=== PATIENT | female | born 1965 | race Caucasian/White ===

== ENCOUNTER 2018-03-04 05:53 | Inpatient (IN) ==
[2018-03-04] MEDS ORDERED: NS 1,000 ML IV ONE (06:06)
[2018-03-04] MEDS ORDERED: METOCLOPRAMIDE 10mg/2ml INJECTION IVP ONE (06:06)
[2018-03-04] MEDS ORDERED: SALINE FLUSH 10ml SYRINGE IVF PRN (06:06)
[2018-03-04] MEDS ORDERED: IOHEXOL 300mg/ml 100ml INJECTION ONE (06:35)
[2018-03-04] MEDS ORDERED: SALINE FLUSH 10ml SYRINGE ONE (06:36)
--- NOTE | 2018-03-04 06:42 | Emergency Department Report ---
Abdominal Pain HPI - General Chief Complaint: Abdominal Pain Stated Complaint: dizzy,nausea,abd pain Time Seen by Provider: 03/04/18 06:00 Source: patient, EMS, RN notes reviewed, old records reviewed Mode of arrival: EMS Limitations: no limitations - History of Present Illness HPI narrative: 52yo woman presented to the ER by EMS for evaluation of abdominal pain. Pt was in the [employer] pool swimming laps, when she became dizzy, nauseated, and had abd pain. Pt had a brief episode of dizziness last night, but felt OK this AM, prior to swimming. Pt was able to extricate herself from the pool prior to EMS' s arrival. Pt had a small amount of clear emesis prior to arrival. Now c/o abdominal pain and nausea with occasional dizziness after zofran given by EMS. MD complaint: abdominal pain Onset (ago): hour(s) Consistency: intermittent Location: diffuse Severity: moderate Severity scale (1-10): 8 Quality: cramping Radiation: none Migration to: no migration Relieving factors: nothing Exacerbating factors: movement Associated symptoms: nausea, vomiting - Related Data Home Medications Medication Instructions Recorded Confirmed cloZAPine [Clozapine] 200 mg PO BID #0 12/03/15 03/04/18 ClonazePAM [Klonopin] 0.5 mg PO HS 03/04/18 03/04/18 Magnesium Hydroxide [Milk of 30 ml PO DAILY PRN 03/04/18 03/04/18 Magnesia] Quetiapine Fumarate 400 mg PO HS 03/04/18 03/04/18 Vitamin B 1 tab PO DAILY 03/04/18 03/04/18 Vitamin C 1 tab PO DAILY 03/04/18 03/04/18 Vitamin D 1 tab PO DAILY 03/04/18 03/04/18 hydrOXYzine pamoate [Vistaril] 50 mg PO QAM 03/04/18 03/04/18 Previous Rx's Medication Instructions Recorded Bisacodyl Supp [Dulcolax] 10 mg RECTALLY DAILY PRN 03/06/18 suppositor ClonazePAM [Klonopin] 0.5 mg PO NOON PRN #4 tab 03/06/18 PEG 3350 17gm PACKET [Miralax] 17 gm PO DAILY packet 03/06/18 Vitamin B Complex + C [Total B + C] 1 tab PO DAILY tab 05/09/18 Allergies Allergy/AdvReac Type Severity Reaction Status Date / Time No Known Allergies Allergy Verified 03/04/18 06:23 Review of Systems All systems: reviewed and negative except as stated Gastrointestinal: Reports: as per HPI, abdominal pain, nausea, vomiting. Denies : diarrhea, constipation, hematemesis, melena, hematochezia Neurological: Reports: as per HPI, vertigo. Denies: headache, weakness, numbness, paresthesias, confusion, abnormal gait [facility] Medical History Updates: Schizoaffective - Social History Smoking status: Unknown if ever smoked Physical Exam - Limitations Limitations: no limitations - General General appearance: alert, in no apparent distress, obese (Morbid) - Normal Exams: Head:: Normocephalic without trauma Eyes:: Pupils are PERRLA w/ EOMI, No scleral icterus, irritation, or foreign bodies noted ENMT:: No facial trauma, nasal exudates, pharyngeal erythema, or exudates are noted Neck:: Full range of motion, without adenopathy Lymphatic:: No lymphadenopathy Musculoskeletal:: No tenderness, or deformity noted Integumentary:: No rashes, hives, or bruising noted Neurological:: Patient is alert, and oriented - Chest Chest inspection: Present: normal inspection, symmetric chest wall rise. Absent : tenderness, rash - Respiratory Respiratory exam: Present: normal lung sounds bilaterally. Absent: respiratory distress, wheezes, stridor, prolonged expiratory phase, crackles - Cardiovascular Cardiovascular exam: Present: regular rate, normal rhythm, normal heart sounds. Absent: rubs, gallop, clicks - Abdominal Exam Abdominal exam: Present: soft, tenderness, normal bowel sounds. Absent: distention, guarding, rebound, rigidity, heel tap sign, Myers's sign, Rovsing' s sign, tenderness at McBurney's Point Abdominal tenderness: Present: diffuse, mild - Psychiatric Psychiatric exam: Present: flat affect, other (histrionic) Course - Consultations Consultation #1: Hospitalist: Will admit pt for bowel rest and observation. Time: 07:31 Vital Signs Pulse Rate 70 03/04/18 05:53 Respiratory Rate 20 03/04/18 05:53 Blood Pressure 125/85 03/04/18 05:53 Pulse Oximetry 100 03/04/18 05:53 Pulse Rate 70 03/04/18 05:53 Respiratory Rate 20 05/07/18 05:53 Blood Pressure 125/85 05/07/18 05:53 Pulse Oximetry 100 03/04/18 05:53 Abdominal Pain - MDM Narrative Medical decision making narrative: Pt with functional ileus vs developing SBO. Discussed dx with hospitalist, who has agreed to admit pt for bowel rest and obs until ileus/SBO resolves or declares itself as needing surgery. - Differential Diagnosis Differential diagnosis: Likely: abdominal pain, calculus of kidney, constipation , diverticulitis, gastroenteritis, pancreatitis, small bowel obstruction - Medical Records Attestation: I reviewed the patient's medical records. - Lab Data Attestation: I reviewed the patient's lab results. Result diagrams: 03/06/18 04:01 03/06/18 04:01 Lab Results 03/04/18 Range/Units 06:19 WBC 5.0 (4.5-11.0) T/MM3 RBC 4.89 (4.00-5.20) M/MM3 Hgb 14.1 (12-16) GM/DL Hct 41.4 (36-46) % MCV 84.7 (80-100) UM3 MCH 28.8 (26-34) UUG MCHC 34.1 (31-37) GM/DL RDW Std Deviation 41.9 (36.9-50.2) FL Plt Count 229 (130-400) T/MM3 MPV 9.8 (9.4-12.4) UM3 Immature Gran % (Auto) 0.0 (0.0-0.5) % Neut % (Auto) 52.4 (33-66) % Lymph % (Auto) 37.9 (23-45) % Harper % (Auto) 9.5 H (0-9.0) % Eos % (Auto) 0.0 (0-4) % Baso % (Auto) 0.2 (0-2) % Neut # (Auto) 2.6 (1.8-7.7) T/MM3 Lymph # (Auto) 1.9 (1-4.8) T/MM3 Harper # (Auto) 0.5 (0-0.8) T/MM3 Eos # (Auto) 0.0 (0-0.5) T/MM3 Baso # (Auto) 0.0 (0-0.2) T/MM3 Abs Immat Gran (auto) 0.00 (0.00-0.03) T/MM3 - Radiology Data Attestation: I reviewed the patient's radiology results. CT Abd/Pelv: IMPRESSION: 1. Few loops of mildly dilated small bowel in the left abdomen measuring up to 3.4 cm with feces-like material suggesting stasis. Findings could represent early or partial obstruction or focal ileus. 2. Remainder of findings as described above. Disposition Clinical Impression: Bowel obstruction Disposition: To [facility] Condition: Stable - Seen By: physician
[2018-03-04] MEDS ORDERED: KETOROLAC 30 MG/ML INJECTION IVP ONE (06:49)
--- NOTE | 2018-03-04 08:09 | CT Scan Report ---
EXAM: CT abdomen pelvis w con HISTORY: Abd pain COMPARISON: No prior studies are available for comparison TECHNIQUE: CT images were obtained of the abdomen and pelvis utilizing 100 of Omnipaque 300. Coronal and sagittal reconstruction imaging was utilized. The current CT scan was performed using radiation dose-reduction techniques. FINDINGS: LUNG BASES: Minimal dependent atelectasis is seen at the lung bases. LIVER: The liver is normal size and contour showing a normal variant Reynaldo's lobe. No discrete lesions. SPLEEN: The spleen is normal size and contour showing no discrete lesions. GALLBLADDER/BILIARY: The gallbladder is normal in caliber showing no CT evidence of stones or wall thickening. There is no evidence of intra or extrahepatic biliary dilatation. PANCREAS: The pancreas is normal size and contour showing no obvious discrete lesions, abnormal enhancement, ductal dilatation or peripancreatic inflammatory change. ADRENAL GLANDS: The adrenal glands are not enlarged. KIDNEYS: The kidneys are symmetrical size, contour and enhancement showing a 5 mm nonobstructing calculus on the lower pole of the left kidney. There is a normal variant right extrarenal pelvis. VASCULAR: The abdominal aorta and IVC are normal caliber. LYMPH NODES: No abdominopelvic adenopathy. STOMACH/BOWEL LOOPS: The stomach demonstrates a small hiatal hernia and is otherwise decompressed and unremarkable. There are a few mildly dilated loops of small bowel some of which demonstrate fecal material demonstrating a maximum caliber of 3.47 cm. There is no evidence of bowel wall thickening or enhancement. The colonic loops are normal caliber to under distended. There are a few scattered diverticula along the close of the colon without evidence of diverticulitis. The appendix is surgically absent. URINARY BLADDER: The urinary bladder is normal size and contour showing no wall thickening or intraluminal filling defects. UTERUS/OVARIES: Normal size and contour for the patient's age. Tubal ligation clips are visualized. OSSEOUS STRUCTURES: No acute fractures or focal destructive lesions are identified. PERITONEAL CAVITY: No free air or free fluid ABDOMINAL WALL: There is a tiny fat-containing periumbilical hernia. IMPRESSION: 1. There are a few mildly dilated loops of small bowel some of which demonstrate fecal material suggesting stasis. The possibility of early small bowel obstruction is not excluded. 2. No evidence of acute appendicitis. 3. Minimal nonobstructing left nephrocalcinosis. 4. Diverticulosis coli without evidence of diverticulitis. 5. Small hiatal hernia. A preliminary report was provided by [facility] 03/04/2018 7:27 AM .
[2018-03-04 10:06] VITALS: BMI 39.1
[2018-03-04] MEDS ORDERED: MECLIZINE 25 MG TABLET PO PRN (13:16)
--- NOTE | 2018-03-04 13:27 | History & Physical Report ---
History of Present Illness Date: 03/04/18 Chief complaint: Dizziness, description indicates vertigo HPI: 52y/o female with pmh of only schizoaffective d/o. She usually gets at the [facility] by Dr Nolasco. She reports that last evening she had about a 15 sec. long dizzy spell where she felt like the world was spinning but resolved quickly on its own. This morning she went to the [facility] to swim and was swimming when she developed acute onset dizziness, nausea and abdominal pain. She reports she was able to get to the side of the pool and get herself out but was unable to stand due to the world spinning around her. EMS was called and she was taken to the emergency room. She did have a small amount clear emesis prior to arrival to the ER. She did receive Zofran by EMS. When seen by me this morning she is resting comfortably and denies dizziness, or nausea. She did have another round of emesis what she got to her room and it was more of a bile emesis. She currently complains of a headache in the frontal area. She did undergo a CT of the abdomen and pelvis with contrast which showed mildly dilated loops of small bowel some of which demonstrate fecal material suggesting stasis. The possibility of early small bowel obstruction was not excluded. There was minimal non-obstructing left nephrocalcinosis. There was diverticulosis without evidence of diverticulitis and was a small hiatal hernia. No CT of the head was done. She was admitted for ileus. She denies recent fever or chills. She denies recent lightheadedness or feeling near syncopal. She denies any syncopal episodes. She denies any cough or sputum production. She denies any chest pain or pressure. She denies palpitations. She reports her last bowel movement was last evening but she does have to use mocha mag and she uses something called "calm powder" daily that she states is supposed to restore her bowels and magnesium levels. She denies any genitourinary symptoms. She denies any lower extremity edema. She denies any pain at present except for her headache. Review of Systems Review of systems: All 14 point review of systems were reviewed and are negative except as noted in history of present illness Past Medical History Medical History Updates: Schizoaffective Surgical History: Appendectomy Family History: Mom at 89 of old age Dad at 52 of a heart attack Family History: As Above - Social History Smoking status: Former smoker (quit in 1997 after 10 years of up to 2 packs a day) Alcohol intake: never Alcohol intake frequency: does not drink Household members: none Does patient use chewing tobacco?: No Social history: Active, swims 5 days a week at the [facility] Medications Home Medications Medication Instructions Recorded Confirmed Type cloZAPine [Clozapine] 200 mg PO BID #0 12/03/15 03/04/18 History ClonazePAM [Klonopin] 0.5 mg PO HS 03/04/18 03/04/18 History Magnesium Hydroxide [Milk of 30 ml PO DAILY PRN 03/04/18 03/04/18 History Magnesia] Quetiapine Fumarate [Quetiapine 400 mg PO HS 03/04/18 03/04/18 History Fumarate] Vitamin B 1 tab PO DAILY 03/04/18 03/04/18 History Vitamin C 1 tab PO DAILY 03/04/18 03/04/18 History Vitamin D 1 tab PO DAILY 03/04/18 03/04/18 History cloZAPine [Clozapine] 100 mg PO HS 03/04/18 03/04/18 History hydrOXYzine pamoate [Vistaril] 50 mg PO QAM 03/04/18 03/04/18 History Allergies Allergy/AdvReac Type Severity Reaction Status Date / Time No Known Allergies Allergy Verified 03/04/18 06:23 Exam Vital Signs: Temperature 96.5 F L 03/04/18 09:44 Pulse Rate 74 03/04/18 09:44 Respiratory Rate 16 03/04/18 09:44 Blood Pressure 146/89 H 03/04/18 09:44 Pulse Oximetry 100 03/04/18 09:44 Height/Weight/BMI: Height 1.7 m Weight 113.4 kg Body Mass Index 39.1 Comments: Gen: alert and oriented. NAD Skin: warm and dry HEENT: NC/AT PERRL, EOMI, Sclera, lids and conjunctiva wnl, MMM, OP clear Neck: supple. No JVD, Carotids 2+ without bruits. Lungs: clear, No rales, rhonchi, wheezes. CV: regular. No murmur, rub or gallop Abd: soft. NT/ND, +BS MS: No edema. Good strength and ROM. Neuro: No focal deficit Psy: normal mood and affect Results - Labs CBC & Chem 7: 03/04/18 06:19 03/04/18 06:19 Assessment and Plan Assessment and Plan: 1. Dizziness consistent with vertigo -will have physical therapy work with her as her balances poor -meclizine PRN 2. Hyperglycemia -will check A1C 3. Slightly elevated plasma lactate -repeat 4. Schizoaffective disorder -will continue her home closet been, Seroquel and Vistaril 5. Prophylaxis SCD's - Physician Narrative Narrative: Date: 03/04/18 Time: 1318 Hospital Course Summary Disclaimer: The visit summary below is not to be considered part of the above Progress Note.
[2018-03-04] MEDS ORDERED: CloZAPine 100 MG TABLET PO SCH ×2 (14:00→21:00)
[2018-03-04] MEDS: QUETIAPINE 200 MG TABLET PO SCH (21:17)
[2018-03-04] MEDS: ClonazePAM 0.5 MG TABLET PO SCH (21:18)
[2018-03-05] MEDS: POLYETHYL GLYCOL 3350 17gm PACKET PO SCH (08:12)
[2018-03-05] MEDS: VITAMIN B COMPLEX + C TABLET PO SCH (08:13)
[2018-03-05] MEDS: ASCORBIC ACID 500 MG TABLET PO SCH (08:13)
[2018-03-05] MEDS: HydrOXYzine 50 MG TABLET PO SCH (08:14)
--- NOTE | 2018-03-05 09:56 | Progress Note ---
- Date 03/05/18 Subjective: F/U: vertigo, possible early small bowel obstruction. Tabitha is seen this morning resting in bed, "waiting for her bowels to move". She reports that overall, she is feeling better and her dizziness is improved. She is hyperverbal on exam. She denies any chest pain, shortness of breath, abdominal pain, nausea, vomiting or dysuria. She is tolerating clear liquid diet well. Unfortunately, she repeatedly refused to work with physical therapy yesterday. Vital signs remain stable. Mild hypernatremia this morning (Na 145) . Labs otherwise unremarkable. Blood cultures remain negative x 1 day and she remains afebrile. Objective Vital signs: Temperature 96.3 F L 03/05/18 07:40 Pulse Rate 74 03/05/18 07:40 Respiratory Rate 16 03/05/18 07:40 Blood Pressure 130/69 03/05/18 07:40 Pulse Oximetry 98 03/05/18 07:40 Height/Weight/BMI: Height 5 ft 7 in Weight 246 lb 4.101 oz Body Mass Index 39.1 Comments: Resting in bed, no apparent distress. - Constitutional Present: no acute distress, well nourished, well developed, morbidly obese, cooperative Comments: Hyperverbal. - Routine HEENT Exam Head: Present: normocephalic, atraumatic Eye: Present: PERRL. Absent: conjunctival icterus ENT: Present: mucous membranes moist, oropharynx clear - Routine Respiratory Exam Present: CTA bilaterally. Absent: respiratory distress, wheezes - Routine Cardiovascular Exam Present: RRR, S1, S2 - Routine Abdominal Exam Present: soft, non tender, distended Comments: Hypoactive bowel sounds. - Routine Extremities Exam Present: no edema, non tender, full ROM, pulses intact - Routine Back/Spine/Pelvis Exam Back/Spine: Present: full ROM. Absent: vertebral tenderness - Routine Musculoskeletal Exam Musculoskeletal: Present: no clubbing or cyanosis, moving extremities well - Routine Skin Exam Present: intact, dry, warm Comments: Afebrile. - Routine Neurological Exam Present: alert, oriented X3, moving all extremities, hearing grossly intact, normal speech - Routine Lymphatic Exam Lymphatic: Absent: lymphedema - Routine Psychiatric Exam Present: cooperative Comments: Hyperverbal Results - Labs CBC & Chem 7: 03/05/18 04:35 03/05/18 04:35 Assessment and Plan (1) Vertigo Current visit: Yes Status: Acute Assessment and Plan: Assessment Acute vertigo. Abdominal pain with questionable early small bowel obstruction. Schizoaffective disorder. Constipation. Obesity with BMI 38.6 Plan Overall, patient is feeling better. Tolerating clear liquid diet. Vertigo improved with meclizine. Continue PRN. Patient refused PT yesterday. Encourage participation today. Serial lactates remain elevated - 2.5, 2.6, 2.5. Remains afebrile. Recheck lactate now and continue to monitor. Mild hypernatremia. Given elevated lactate and hypernatremia, will initiate NS 100cc/hr for gentle hydration while on clear liquids. Continue with bowel motivation. Possible discharge later today or tomorrow. Jonnathan Assessment - as above with: Elevated lactate of uncertain etiology. Lactate showing elevation, but not seeing any other sigh/symptoms to suggest Septic or Shock process. DVT Prophylaxis: SCD's Resuscitation Status: Full Code - Time spent with patient Time with patient PN: 30 minutes - Physician Narrative Physician: Reid De Santiago MD Narrative: Date: 03/05/18 Time: 1540 Have independently interviewed & examined pt. Chart reviewed. Case discussed with CM & my PA. Care plan developed with my supervision; agree with above. Doing better-less dizziness and vertigo (feels about 70% resolved this afternoon ). Has been up in chair more and tolerating that activity well. Becoming more steady on feet, but not feeling improved enough to go home. Nausea resolved. Tolerating clear liquids. Passing flatus, but no stool. Notes mild 'lower ab, colonic discomfort.' Appetite improving. Breathing well. No f/c. BP and HR stable. No temp elevations. Lungs: clear bilaterally, no distress on RA. CV: regular AB: soft obese nt/nd BS decreased. MSE: awake alert Plan: Will advance diet to regular - advised caution with eating to decrease risk for n/v. Dulcolax suppository x1 now to help with fecal motivation. Will recheck KUB and upright in am--do feel CT finding more of chronic constipation/ obstipation than small bowel obstruction based on resolution of symptoms. Encourage ambulation. Pt reluctant to restart Clozapine due to dizziness -- would like to stop completely, but have additional Klonopin 0.5mg at noon. Did attempt to contact Christopher Paez at to discuss medications, but he is out today. Left message with his nurse and will try back tomorrow. In interim time, would be prudent to restart Clozapine at 100mg nightly; worry psychiatric status could deteriorate without this medication. Will continue with supportive treatment. Hospital Course Summary Disclaimer: The visit summary below is not to be considered part of the above Progress Note. Hospital Course: 03/04/18 Dizziness consistent with vertigo -will have physical therapy work with her as her balances poor -meclizine PRN Hyperglycemia -will check A1C Slightly elevated plasma lactate -repeat Schizoaffective disorder -will continue her home medications, Seroquel and Vistaril 03/05/18 Overall, patient is feeling better. Tolerating clear liquid diet. Vertigo improved with meclizine. Continue PRN. Patient refused PT yesterday. Encourage participation today. Serial lactates remain elevated - 2.5, 2.6, 2.5. Remains afebrile. Recheck lactate now and continue to monitor. Recheck with increase to 4.7 with repeat after that normal at 1.7. Not seeing any other sigh/symptoms to suggest Septic or Shock process. Mild hypernatremia. Given elevated lactate and hypernatremia, will initiate NS 100cc/hr for gentle hydration while on clear liquids. Continue with bowel motivation. Possible discharge later today or tomorrow. Will advance diet to regular - advised caution with eating to decrease risk for n/v. Dulcolax suppository x1 now to help with fecal motivation. Will recheck KUB and upright in am--do feel CT finding more of chronic constipation/obstipation than small bowel obstruction based on resolution of symptoms. Encourage ambulation. Pt reluctant to restart Clozapine due to dizziness -- would like to stop completely, but have additional Klonopin 0.5mg at noon. Did attempt to contact Christopher Paez at to discuss medications, but he is out today. Left message with his nurse and will try back tomorrow. In interim time, would be prudent to restart Clozapine at 100mg nightly; worry psychiatric status could deteriorate without this medication. Will continue with supportive treatment.
[2018-03-05] MEDS: NS 1,000 ML IV SCH ×2 (11:23→22:49)
[2018-03-05] MEDS ORDERED: BISACODYL 10 MG SUPPOSITORY RECTALLY ONE (15:28)
[2018-03-05] MEDS ORDERED: BISACODYL 10 MG SUPPOSITORY RECTALLY PRN (15:28)
[2018-03-05] MEDS: ACETAMINOPHEN 325 MG TABLET PO PRN (17:56)
[2018-03-05] MEDS: QUETIAPINE 200 MG TABLET PO SCH (20:07)
[2018-03-05] MEDS: ClonazePAM 0.5 MG TABLET PO SCH (20:07)
[2018-03-05] MEDS ORDERED: CloZAPine 100 MG TABLET PO SCH (21:00)
[2018-03-06] MEDS: NS 1,000 ML IV SCH (06:14)
--- NOTE | 2018-03-06 08:08 | XRay Report ---
Indication: ? ileus vs constipation PROCEDURE: XR abdomen 2V: Encounter: Initial Comparison: CT abdomen dated March 04, 2018 Findings: The visualized lung bases are clear. There is no free air on the upright view. The bowel gas pattern is nonobstructive and nonspecific. Gas is seen in nondilated small and large bowel to the level of the rectum. Moderate stool is seen throughout the colon. The bony structures are grossly unremarkable. Impression: Nonobstructive nonspecific bowel gas pattern. .
[2018-03-06] MEDS: HydrOXYzine 50 MG TABLET PO SCH (08:20)
[2018-03-06] MEDS: VITAMIN B COMPLEX + C TABLET PO SCH (08:20)
[2018-03-06] MEDS: POLYETHYL GLYCOL 3350 17gm PACKET PO SCH (08:29)
[2018-03-06] MEDS: ASCORBIC ACID 500 MG TABLET PO SCH (08:29)
[2018-03-06 09:12] VITALS: BP 121/87; PULSE 76; TEMP 95.6; O2SAT 98
[2018-03-06] MEDS ORDERED: ClonazePAM 0.5 MG TABLET PO SCH (12:00)
[2018-03-06] MEDS: ACETAMINOPHEN 325 MG TABLET PO PRN (12:13)
[2018-03-06 12:14] VITALS: RESP 22
--- NOTE | 2018-03-06 13:20 | Progress Note ---
- Date 03/06/18 Subjective: F/U: Labyrinthitis, constipation Doing much better today. Dizziness resolved. Ambulating much better-able to walk in halls well without difficulty. Eating well-no nausea or ab pain with oral intake. Bowels moving. Breathing well. Feels ready to go home. Objective Vital signs: Temperature 95.6 F L 03/06/18 08:00 Pulse Rate 76 03/06/18 08:00 Respiratory Rate 22 03/06/18 12:13 Blood Pressure 121/87 03/06/18 08:00 Pulse Oximetry 98 03/06/18 08:00 Height/Weight/BMI: Height 1.7 m Weight 113.2 kg Body Mass Index 39.1 - Constitutional Present: no acute distress, well nourished, well developed, average body habitus , obese - Routine HEENT Exam Head: Present: normocephalic, atraumatic Eye: Present: EOMI, PERRL ENT: Present: mucous membranes moist - Routine Respiratory Exam Present: CTA bilaterally. Absent: respiratory distress - Routine Cardiovascular Exam Present: RRR, no murmur - Routine Abdominal Exam Present: soft, normoactive bowel sounds, non distended, non tender. Absent: guarding - Routine Extremities Exam Present: cyanosis, clubbing, no edema, pulses intact - Routine Musculoskeletal Exam Musculoskeletal: Present: no clubbing or cyanosis, normal strength - Routine Skin Exam Present: dry, warm - Routine Neurological Exam Present: alert, CN II-XII intact, moving all extremities, vision grossly intact , hearing grossly intact, normal speech. Absent: motor deficit, altered mental status - Routine Psychiatric Exam Present: normal affect, cooperative. Absent: agitated Results - Labs CBC & Chem 7: 03/06/18 04:01 03/06/18 04:01 Assessment and Plan (1) Vertigo Current visit: Yes Status: Acute Assessment and Plan: Admitting diagnosis Acute vertigo. Abdominal pain with questionable early small bowel obstruction. Assessment Labyrinthitis Constipation Ab pain - resolved No evidence of small bowel obstruction. Elevated lactate of uncertain etiology No evidence of sepsis or shock Schizoaffective disorder. Constipation. Obesity with BMI 38.6 Plan Clinically much improved. Dizziness resolve. No nausea, eating well. Bowels moving. Ambulating without problems. Medically stable for discharge to home. Discussed case with Christopher Paez at [facility]. He recommends Clozaril 200mg BID (decrease by 100mg daily). I will write prescription for clonazepam 0.5mg daily at noon as needed (#4). Christopher Paez does not want to continue higher frequency clonazepam for patient. May continue prior home medication for bowels but do recommend: Miralax 17g daily - can decrease if stools too loose. Dulcolax 10mg pr daily as needed for constipation. Patient to follow up with Christopher Paez on March 13 as previously scheduled. Case discussed with nursing, CM, ang Christopher Paez. Time spent with care and discharge greater than 30 minutes. DVT Prophylaxis: SCD's Resuscitation Status: Full Code - Physician Narrative Physician: Reid De Santiago MD Narrative: Date: 03/06/18 Time: 1317 Hospital Course Summary Disclaimer: The visit summary below is not to be considered part of the above Progress Note. Hospital Course: 03/04/18 Dizziness consistent with vertigo -will have physical therapy work with her as her balances poor -meclizine PRN Hyperglycemia -will check A1C Slightly elevated plasma lactate -repeat Schizoaffective disorder -will continue her home medications, Seroquel and Vistaril 03/05/18 Overall, patient is feeling better. Tolerating clear liquid diet. Vertigo improved with meclizine. Continue PRN. Patient refused PT yesterday. Encourage participation today. Serial lactates remain elevated - 2.5, 2.6, 2.5. Remains afebrile. Recheck lactate now and continue to monitor. Recheck with increase to 4.7 with repeat after that normal at 1.7. Not seeing any other sigh/symptoms to suggest Septic or Shock process. Mild hypernatremia. Given elevated lactate and hypernatremia, will initiate NS 100cc/hr for gentle hydration while on clear liquids. Continue with bowel motivation. Possible discharge later today or tomorrow. Will advance diet to regular - advised caution with eating to decrease risk for n/v. Dulcolax suppository x1 now to help with fecal motivation. Will recheck KUB and upright in am--do feel CT finding more of chronic constipation/obstipation than small bowel obstruction based on resolution of symptoms. Encourage ambulation. Pt reluctant to restart Clozapine due to dizziness -- would like to stop completely, but have additional Klonopin 0.5mg at noon. Did attempt to contact Christopher Paez at to discuss medications, but he is out today. Left message with his nurse and will try back tomorrow. In interim time, would be prudent to restart Clozapine at 100mg nightly; worry psychiatric status could deteriorate without this medication. Will continue with supportive treatment. 03/06/18 Clinically much improved. Dizziness resolve. No nausea, eating well. Bowels moving. Ambulating without problems. Medically stable for discharge to home. Discussed case with Christopher Paez at [facility]. He recommends Clozaril 200mg BID (decrease by 100mg daily). I will write prescription for clonazepam 0.5mg daily at noon as needed (#4). Christopher Paez does not want to continue higher frequency clonazepam for patient. May continue prior home medication for bowels but do recommend: Miralax 17g daily - can decrease if stools too loose. Dulcolax 10mg pr daily as needed for constipation. Patient to follow up with Christopher Paez on March 13 as previously scheduled.
--- NOTE | 2018-03-06 14:00 | Discharge Summary ---
Discharge Information Date of admission: 03/04/18 09:18 Anticipated date of discharge: 03/06/18 Attending Physician: Reid De Santiago MD Consults: PT/OT - Discharge Diagnosis (1) Vertigo Status: Acute Admitting diagnosis Acute vertigo Abdominal pain with questionable early small bowel obstruction VS ileus. Discharge diagnosis Labyrinthitis Associated conditions and complications Constipation Ab pain - resolved No evidence of small bowel obstruction. Elevated lactate of uncertain etiology No evidence of sepsis or shock Schizoaffective disorder. Constipation. Obesity with BMI 38.6 - Laboratory Labs: Admit Lab 03/04/18 06:19 WBC 5.0 Hgb 14.1 Hct 41.4 MCV 84.7 Plt Count 229 Neut % (Auto) 52.4 Lymph % (Auto) 37.9 [place] % (Auto) 9.5 H Eos % (Auto) 0.0 Baso % (Auto) 0.2 Admit Lab 03/04/18 03/04/18 06:19 06:19 Sodium 143 Potassium 3.6 Chloride 108 H Carbon Dioxide 21 L Anion Gap 14 BUN 14.0 Creatinine 0.7 GFR Calculation 88 BUN/Creatinine Ratio 20 Glucose 131 H Calculated Osmolality 278 Calcium 9.4 Total Bilirubin 0.30 AST 31 ALT 36 H Alkaline Phosphatase 114 Total Protein 7.2 Albumin 4.0 Globulin 3.2 Albumin/Globulin Ratio 1.3 Lipase 124 Serum , Qual Negative 03/06/18 04:01 03/06/18 04:01 - Radiology Radiology: Date of Exam: 03/04/18 Type of Exam: CT abdomen pelvis w con FINDINGS: LUNG BASES: Minimal dependent atelectasis is seen at the lung bases. LIVER: The liver is normal size and contour showing a normal variant Reynaldo's lobe. No discrete lesions. SPLEEN: The spleen is normal size and contour showing no discrete lesions. GALLBLADDER/BILIARY: The gallbladder is normal in caliber showing no CT evidence of stones or wall thickening. There is no evidence of intra or extrahepatic biliary dilatation. PANCREAS: The pancreas is normal size and contour showing no obvious discrete lesions, abnormal enhancement, ductal dilatation or peripancreatic inflammatory change. ADRENAL GLANDS: The adrenal glands are not enlarged. KIDNEYS: The kidneys are symmetrical size, contour and enhancement showing a 5 mm nonobstructing calculus on the lower pole of the left kidney. There is a normal variant right extrarenal pelvis. VASCULAR: The abdominal aorta and IVC are normal caliber. LYMPH NODES: No abdominopelvic adenopathy. STOMACH/BOWEL LOOPS: The stomach demonstrates a small hiatal hernia and is otherwise decompressed and unremarkable. There are a few mildly dilated loops of small bowel some of which demonstrate fecal material demonstrating a maximum caliber of 3.47 cm. There is no evidence of bowel wall thickening or enhancement. The colonic loops are normal caliber to under distended. There are a few scattered diverticula along the close of the colon without evidence of diverticulitis. The appendix is surgically absent. URINARY BLADDER: The urinary bladder is normal size and contour showing no wall thickening or intraluminal filling defects. UTERUS/OVARIES: Normal size and contour for the patient's age. Tubal ligation clips are visualized. OSSEOUS STRUCTURES: No acute fractures or focal destructive lesions are identified. PERITONEAL CAVITY: No free air or free fluid ABDOMINAL WALL: There is a tiny fat-containing periumbilical hernia. IMPRESSION: 1. There are a few mildly dilated loops of small bowel some of which demonstrate fecal material suggesting stasis. The possibility of early small bowel obstruction is not excluded. 2. No evidence of acute appendicitis. 3. Minimal nonobstructing left nephrocalcinosis. 4. Diverticulosis coli without evidence of diverticulitis. 5. Small hiatal hernia. Date of Exam: 03/06/18 Type of Exam: XR abdomen 2V Findings: The visualized lung bases are clear. There is no free air on the upright view. The bowel gas pattern is nonobstructive and nonspecific. Gas is seen in nondilated small and large bowel to the level of the rectum. Moderate stool is seen throughout the colon. The bony structures are grossly unremarkable. Impression: Nonobstructive nonspecific bowel gas pattern. History of Present Illness HPI: 52y/o female with pmh of only schizoaffective d/o. She usually gets at the [facility] by Dr Nolasco. She reports that last evening she had about a 15 sec. long dizzy spell where she felt like the world was spinning but resolved quickly on its own. This morning she went to the [facility] to swim and was swimming when she developed acute onset dizziness, nausea and abdominal pain. She reports she was able to get to the side of the pool and get herself out but was unable to stand due to the world spinning around her. EMS was called and she was taken to the emergency room. She did have a small amount clear emesis prior to arrival to the ER. She did receive Zofran by EMS. When seen by me this morning she is resting comfortably and denies dizziness, or nausea. She did have another round of emesis what she got to her room and it was more of a bile emesis. She currently complains of a headache in the frontal area. She did undergo a CT of the abdomen and pelvis with contrast which showed mildly dilated loops of small bowel some of which demonstrate fecal material suggesting stasis. The possibility of early small bowel obstruction was not excluded. There was minimal non-obstructing left nephrocalcinosis. There was diverticulosis without evidence of diverticulitis and was a small hiatal hernia. No CT of the head was done. She was admitted for ileus. She denies recent fever or chills. She denies recent lightheadedness or feeling near syncopal. She denies any syncopal episodes. She denies any cough or sputum production. She denies any chest pain or pressure. She denies palpitations. She reports her last bowel movement was last evening but she does have to use mocha mag and she uses something called "calm powder" daily that she states is supposed to restore her bowels and magnesium levels. She denies any genitourinary symptoms. She denies any lower extremity edema. She denies any pain at present except for her headache. For complete details of the H&P refer to that document. Objective Vital signs: Temperature 95.6 F L 03/06/18 08:00 Pulse Rate 76 03/06/18 08:00 Respiratory Rate 22 03/06/18 12:13 Blood Pressure 121/87 03/06/18 08:00 Pulse Oximetry 98 03/06/18 08:00 Height/Weight/BMI: Height 1.7 m Weight 113.2 kg Body Mass Index 39.1 Hospital Course This is a general summary of the patient's hospital course. For more details refer to the complete medical record. Hospital course: 03/04/18 Dizziness consistent with vertigo -will have physical therapy work with her as her balances poor -meclizine PRN Hyperglycemia Slightly elevated plasma lactate -repeat Schizoaffective disorder -will continue her home medications, Seroquel and Vistaril 03/05/18 Overall, patient is feeling better. Tolerating clear liquid diet. Vertigo improved with meclizine. Continue PRN. Patient refused PT yesterday. Encourage participation today. Serial lactates remain elevated - 2.5, 2.6, 2.5. Remains afebrile. Recheck lactate now and continue to monitor. Recheck with increase to 4.7 with repeat after that normal at 1.7. Not seeing any other sigh/symptoms to suggest Septic or Shock process. Mild hypernatremia. Given elevated lactate and hypernatremia, will initiate NS 100cc/hr for gentle hydration while on clear liquids. Continue with bowel motivation. Possible discharge later today or tomorrow. Will advance diet to regular - advised caution with eating to decrease risk for n/v. Dulcolax suppository x1 now to help with fecal motivation. Will recheck KUB and upright in am--do feel CT finding more of chronic constipation/obstipation than small bowel obstruction based on resolution of symptoms. Pt reluctant to restart Clozapine due to dizziness -- would like to stop completely, but have additional Klonopin 0.5mg at noon. Did attempt to contact Christopher Paez at to discuss medications, but he is out today. Left message with his nurse and will try back tomorrow. In interim time, would be prudent to restart Clozapine at 100mg nightly; worry psychiatric status could deteriorate without this medication. Will continue with supportive treatment. 03/06/18 Clinically much improved. Dizziness resolve. No nausea, eating well. Bowels moving. Ambulating without problems. Medically stable for discharge to home. Discussed case with Christopher Paez at [facility]. He recommends Clozaril 200mg BID (decrease by 100mg daily). I will write prescription for clonazepam 0.5mg daily at noon as needed (#4). Christopher Paez does not want to continue higher frequency clonazepam for patient. May continue prior home medication for bowels but do recommend: Miralax 17g daily - can decrease if stools too loose. Dulcolax 10mg pr daily as needed for constipation. Patient to follow up with Christopher Paez on March 13 as previously scheduled. Time spent with patient: discharge greater than 30 minutes Resuscitation Status: Full Code Discharge Plan - Discharge Disposition Discharge Date: 03/06/18 Disposition: Discharged Home, Self-Care *Condition: Stable Reason For Visit (Visit label in EMR): SBO vs ileus - Discharge Medications *Discharge Medications: New Bisacodyl Supp [Dulcolax] 10 mg RECTALLY DAILY PRN suppositor PRN Reason: Constipation ClonazePAM [Klonopin] 0.5 mg PO NOON PRN #4 tab PRN Reason: Severe Anxiety PEG 3350 17gm PACKET [Miralax] 17 gm PO DAILY packet Vitamin B Complex + C [Total B + C] 1 tab PO DAILY tab Continue hydrOXYzine pamoate [Vistaril] 50 mg PO QAM ClonazePAM [Klonopin] 0.5 mg PO HS Quetiapine Fumarate 400 mg PO HS Vitamin B 1 tab PO DAILY Magnesium Hydroxide [Milk of Magnesia] 30 ml PO DAILY PRN PRN Reason: Constipation cloZAPine [Clozapine] 200 mg PO BID #0 Vitamin D 1 tab PO DAILY Discontinued cloZAPine [Clozapine] 100 mg PO HS No Action Vitamin C 1 tab PO DAILY - Discharge Packet/Instructions *Diet: Regular diet. May have 2-3 quarts fluid a day. *Activity: As tolerated. Recommend WALKING activities for exercise. Do not run or jog. *Pain Management/Treatment: May continue prior home pain medications. *Wound Care: N/A Additional Instructions: Continue prior supplement to help bowel function. Recommend Miralax 17 grams daily to help bowel movement. Could decrease the amount of Miralax or frequency if bowel get too soft or urgent. Need to have routine bowel movements - daily to every other day. May use Dulcolax suppository if you feel bowels are not moving. Fiber in diet can help bowel function. Clozaril is decreased to 200mg twice a day. Use clonazepam 0.5mg at noon ONLY if you have severe anxiety. Do NOT drive if useing clonazepam during the day. *Expected Signs/Symptoms: Resolution of dizziness. Improvement of bowel function. *Notify Physician if: Temp >100.4. Worsening dizziness. *During Business Hours Contact: Raffi Paez *After Business Hours Contact: Contact [facility] and have your care provider contacted. *Pending Lab/Results: No Pending Lab - Referrals/Follow Up *Referrals/Follow Up: Christopher Paez APRN [Advanced Practice Nurse] - (Keep appointment on March 13 as scheduled. ) - Patient Handouts Patient Handouts: Vertigo (GEN) - Dismissal Complete Discharge Instructions are:: Complete Physician Narrative - Narrative Physician: Reid De Santiago MD Attestation Narrative: Date: 03/06/18 Time: 6189 I have independently interviewed and examined patient prior to discharge. See my progress note for details. Medically stable for discharge.
== END 2018-03-06 16:10 | disposition home or self-care (01) | DRG 149 ==
LOC: ED 05:53 → MED 05:53 → SUATTDRO 09:18 → OBSVTOIN 09:18 → INTOOBSV 09:18 → MED 09:52 → UNDODISOB 03-06 16:10
PROVIDERS: ADMIT Internal Medicine Cardiovascular Disease; ATTEND Hospitalist